=== PATIENT | male | born 1965 | race Caucasian/White ===

== ENCOUNTER 2016-06-08 17:59 | Emergency (ER) | payer MEDICAID ==
[~2016-06-08] VITALS: Ht 182.9 cm; Wt 139.3 kg
[2016-06-08 20:40] VITALS: BP 126/87
== END 2016-06-08 21:19 | disposition home or self-care (01) ==
LOC: ER 18:21
DX: K21.9 Gastro-esophageal reflux disease without esophagitis (principal); F17.210 Nicotine dependence, cigarettes, uncomplicated